=== PATIENT | male | born 1980 | race Two or more races ===

== ENCOUNTER 2020-10-04 16:03 | Emergency (ER) | payer SELFPAY ==
[~2020-10-04] VITALS: Ht 175.3 cm; Wt 113.4 kg
[2020-10-04 16:11] VITALS: BP 120/95
--- NOTE | 2020-10-04 16:17 | NUR ---
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 Denies SOB. Respiration regular and unlabored. Will continue to monitor the patient.
[2020-10-04] MEDS ORDERED: HYDROCODONE/APAP 10/325MG TABLET PO ONE (16:30)
[2020-10-04] MEDS ORDERED: ONDANSETRON 4 MG TAB.RAPDIS SL ONE (16:30)
[2020-10-04] MEDS ORDERED: ONDANSETRON 4 MG TAB.RAPDIS ONE (16:44)
[2020-10-04] MEDS ORDERED: HYDROCODONE/APAP 10/325MG TABLET ONE (16:44)
[2020-10-04] MEDS ORDERED: HYDR-4209 PO (18:12)
--- NOTE | 2020-10-04 18:20 | NUR ---
Patient discharged to home in stable condition. Written and verbal after care instructions given. Patient verbalizes understanding of instruction.
== END 2020-10-04 18:20 | disposition home or self-care (01) ==
LOC: ER 16:08 → EDBD 16:08 → ER 18:20
DX: J02.9 Acute pharyngitis, unspecified (principal); R05 Cough; Z20.822 Contact with and (suspected) exposure to COVID-19; Z86.16 Personal history of COVID-19
CPT/HCPCS: 87426; 87880; 99283; C9803; Q0162; 86403-TC